=== PATIENT | female | born 1990 | race Caucasian/White ===

== ENCOUNTER → 2016-07-27 | Outpatient (CLI) | payer BC ==
[~2016-07-27] MED LIST: GLYB-108 PO
== END | disposition home or self-care (01) ==
LOC: C.LAB1850 12:20
PROVIDERS: ATTEND Obstetrics & Gynecology
DX: O20.9 Hemorrhage in early pregnancy, unspecified (principal); Z3A.00 Weeks of gestation of pregnancy not specified

== ENCOUNTER → 2016-08-07 | Outpatient (CLI) | payer BC | END | disposition home or self-care (01) | LOC: C.PAPS 08:27 | PROVIDERS: ATTEND Obstetrics & Gynecology | DX: Z01.419 Encounter for gynecological examination (general) (routine) without abnormal findings (principal) ==

== ENCOUNTER → 2016-08-14 | Outpatient (CLI) | payer BC | END | disposition home or self-care (01) | LOC: C.PATHSPEC 12:41 | PROVIDERS: ATTEND Obstetrics & Gynecology | DX: N84.1 Polyp of cervix uteri (principal) ==

== ENCOUNTER → 2017-04-02 | Outpatient (CLI) | payer BC ==
--- NOTE | 2017-04-02 16:16 | DIAGNOSTIC IMAGING REPORT ---
LEFT KNEE 1 OR 2 VIEWS ROUTINE, LEFT TIBIA/FIBULA 2 VIEWS ROUTINE CLINICAL HISTORY: LEG LEG PAIN. Left knee pain. COMPARISON STUDY: None. FINDINGS: No fracture or dislocation. No radiopaque foreign bodies. No knee effusion. Soft tissues are unremarkable. Cartilage spaces are maintained for age. IMPRESSION: No significant abnormality within the left knee or left lower leg. Electronically signed by: Hermes Hernandez M.D. 04/02/2017 4:15 PM Dictated Date/Time: 04/02/2017 4:13 PM
== END | disposition home or self-care (01) ==
LOC: C.RAD1850 16:00
PROVIDERS: ATTEND Physician Assistant Medical
DX: M89.8X9 Other specified disorders of bone, unspecified site (principal); M79.605 Pain in left leg

== ENCOUNTER → 2017-07-08 | Outpatient (CLI) | payer BC ==
[2017-07-08 13:09] LABS: BASO % 0.2 %; BASO ABS # 0.01 K/uL (0-0.2); COMPLETE YES; HEMATOCRIT 39.5 % (37-47); LYMPH ABS # 2.06 K/uL (1.2-3.4); MEAN CELL VOLUME 88.6 fL (80-100); MEAN CORPUSCULAR HEMOGLOBIN 31.2 pg (25-34); MEAN CORPUSCULAR HGB CONC 35.2 g/dl (32-36); MONO % 10.2 %; NEUT % 46.6 %; PLATELET COUNT 207 K/uL (130-400); RED BLOOD COUNT 4.46 M/uL (4.2-5.4); WHITE BLOOD COUNT 4.91 K/uL (4.8-10.8)
[2017-07-08 13:12] LABS: URINE APPEARANCE CLEAR (CLEAR); URINE BILIRUBIN NEG (NEG); URINE COLOR YELLOW; URINE EPITHELIAL CELL AUTO >30 /lpf (0-5); URINE NITRITE NEG (NEG); UROBILINOGEN NEG (NEG); ZZUR CULT IF INDIC CLEAN CATCH NO
[2017-07-08 13:18] LABS: AST/SGOT 11 U/L (15-37); BLOOD UREA NITROGEN 12 mg/dl (7-18); BUN/CREATININE RATIO 21.7 (10-20); CALCIUM 8.5 mg/dl (8.5-10.1); CARBON DIOXIDE 24 mmol/L (21-32); CHLORIDE 107 mmol/L (98-107); CREATININE 0.56 mg/dl (0.60-1.20); GLUCOSE 99 mg/dl (70-99); POTASSIUM 4.1 mmol/L (3.5-5.1); SODIUM 136 mmol/L (136-145)
[2017-07-08 13:22] LABS: MANUAL MICROSCOPIC REQUIRED? NO; REVIEW REQ? NO
[2017-07-08 13:29] LABS: ALB/GLOB RATIO 1.3 (0.9-2); ALKALINE PHOSPHATASE 31 U/L (45-117); ALT/SGPT 19 U/L (12-78)
== END | disposition home or self-care (01) ==
LOC: C.LABBFT 10:00
PROVIDERS: ATTEND Physician Assistant Medical
DX: R63.4 Abnormal weight loss (principal)

== ENCOUNTER → 2018-02-25 | Outpatient (CLI) | payer BC ==
--- NOTE | 2018-02-25 09:25 | DIAGNOSTIC IMAGING REPORT ---
R HAND MIN 3 VIEWS ROUTINE HISTORY: 28 years-old Female M13.0 Symmetrical polyarthritis COMPARISON: None available TECHNIQUE: 3 views of the right hand FINDINGS: 4 mm bone island of the proximal scaphoid. No acute fracture, dislocation or erosive arthropathy. No significant joint space narrowing or degenerative changes. No opaque foreign body. IMPRESSION: No acute bony abnormality. The above report was generated using voice recognition software. It may contain grammatical, syntax or spelling errors. Electronically signed by: Lisandro Wall M.D. 02/25/2018 9:24 AM Dictated Date/Time: 02/25/2018 9:22 AM
--- NOTE | 2018-02-25 09:28 | DIAGNOSTIC IMAGING REPORT ---
RIGHT KNEE 2 VIEWS HISTORY: M13.0 Symmetrical polyarthritis COMPARISON: None. FINDINGS: There is no fracture or dislocation. Soft tissues are unremarkable. Cartilage spaces are maintained. No erosive changes identified. Suspect a trace knee effusion. IMPRESSION: 1. Suspect a trace knee effusion. 2. No bony abnormality within the right knee. Electronically signed by: Hermes Hernandez M.D. 02/25/2018 9:27 AM Dictated Date/Time: 02/25/2018 9:24 AM
[2018-02-25 10:43] LABS: TRANSFERRIN 266 mg/dl (200-360)
[2018-03-03 03:34] LABS: ANA SCREEN TC 249X NEGATIVE (NEGATIVE); ANTI-SS-A <1.0 NEG AI (<1.0 NEG); ANTI-SS-B <1.0 NEG AI (<1.0 NEG); COMPLEMENT C4** TC 44982E 13 MG/DL (15-57); PARVOVIRUS IgM INDEX 0.4 (<0.9)
== END | disposition home or self-care (01) ==
LOC: C.RAD1850 08:59
PROVIDERS: ATTEND Internal Medicine Rheumatology
DX: M13.0 Polyarthritis, unspecified (principal); M79.641 Pain in right hand; M79.642 Pain in left hand

== ENCOUNTER → 2018-03-03 | Outpatient (CLI) | payer BC ==
--- NOTE | 2018-03-03 12:33 | DIAGNOSTIC IMAGING REPORT ---
BONE SCAN WHOLE BODY CLINICAL HISTORY: 28 years-old Female presenting with M13.0 Symmetrical polyarthritis. TECHNIQUE: Planar anterior and posterior imaging of the whole body was performed 3 hours following the intravenous administration of 26.7 mCi Tc-99m MDP. Static anterior and posterior delayed imaging of the lower extremities and hands were also obtained. COMPARISON: Radiographs of the right hand, right knee, left knee, and left lower leg. FINDINGS: Normal radiotracer distribution in the axial and appendicular skeleton. Faint visualization of the kidneys and normal excretion of radiotracer into the urinary bladder. No abnormal focus of radiotracer activity. Dedicated imaging of the lower extremities also demonstrates no abnormal foci of radiotracer activity. Symmetric avidity in both lower extremities and hands. IMPRESSION: 1. No abnormal radiotracer uptake. Electronically signed by: Farshad Willams M.D. 03/03/2018 12:31 PM Dictated Date/Time: 03/03/2018 12:28 PM
== END | disposition home or self-care (01) ==
LOC: C.NUCL 07:37
PROVIDERS: ATTEND Internal Medicine Rheumatology
DX: M13.0 Polyarthritis, unspecified (principal)

== ENCOUNTER 2020-01-08 08:26 | Observation (INO) ==
--- NOTE | 2019-12-21 14:37 | PAT Medication Instructions ---
Medication Instructions Date of Service December 21, 2019 Home Medications multivitamin 1 cap PO DAILY rizatriptan [Maxalt] 10 mg PO UD PRN DO NOT take the morning of surgery multivitamin 1 cap PO DAILY Take morning of surgery With a small sip of water, OTHERWISE NOTHING TO EAT OR DRINK AFTER MIDNIGHT: rizatriptan [Maxalt] 10 mg PO UD PRN (if needed) Take evening before surgery rizatriptan [Maxalt] 10 mg PO UD PRN (if needed) Other Notes If you have any questions please call us at [phone] or [phone] or [phone] or [phone]
--- NOTE | 2019-12-26 12:12 | Anesthesiology Consultation ---
Date of Service December 26, 2019 Assessment & Plan (1) Encounter for pre-operative examination: Per PAT assessment on 12/25: Travel screen- Lives in [facility] (near [facility]). No known COVID-19 positive contacts. No history of COVID-19 testing. No current COVID-19 related symptoms. - Check test AM DOS Chart Review Chart Review: Acceptable Risk for Surgery and Patient seen in Pre Admission Testing Teaching & Discussion Pre-Anesthesia Teaching/Discussion Notes: Instructed NPO after midnight before surgery,except medications with 15 cc of water. Medication instructions provided according to the PAT guidelines. History Surgery Operation Date: 01/08/20 09:20 Proposed Procedures p Robotic Total Laparoscopic Hysterectomy - Nahid Cuadra MD Height/Weight Height: 5 ft 2 in Weight: 49 kg Allergies Allergy/AdvReac Type Severity Reaction Status Date / Time No Known Allergies Allergy Unknown ` Verified 12/22/19 11:21 Medications Home Medications Medication Instructions Recorded Confirmed Last Taken multivitamin 1 cap PO DAILY 10/05/19 12/22/19 Unknown rizatriptan [Maxalt] 10 mg PO UD PRN 10/05/19 12/22/19 Unknown Past Medical History Medical History Fibroid uterus History of migraine headaches Pelvic pain Exercise / Class Metabolic Activity II 4-5 Yardwork/Stairs/Walk up hill Past Family History Family History Mother Abusive physical relationship with partner or spouse Thyroid disease Father Alcoholism Sister Arthritis Grandmother (Paternal) Diabetes Grandfather (Paternal) Hyperlipidemia Cancer Grandmother (Paternal) Hypertension Grandfather No problems noted. Grandfather (Maternal) Liver disease Aunt Multiple sclerosis Other Ovarian cancer Past Surgical History Surgical History H/O tooth extraction History of cervical polypectomy IN OFFICE SETTING History of endoscopy Implantable subdermal contraceptive surveillance capsules AND SINCE REMOVED [place] teeth removed Past Anesthesia History No Hx of Anesthesia Complications and No Family Hx of Anesthesia Complications History of PONV No Hx of PONV and Hx of Motion Sickness Social History Smoking Status: Current every day smoker Smoking cigarettes per day: < 1/2 ppd Do You Dip or Chew Tobacco: No Smoking End Date: FEB 2019 Hx Alcohol Use: Yes Alcohol type: beer, wine and hard liquor alcohol intake frequency: a few times a month Hx Substance Use: No substance use type: does not use Review of Systems Patient denies chest pain, shortness of breath, dyspnea on exertion, fever, chills, cough, wheezing, palpitations. Physical Exam Vital Signs VITALS BP 111/75 P 77 TEMP 98.5 SP02 99%RA RESP 16 PHYSICAL Full neck and c-spine range of motion. Full TMJ range of motion. TMD 3.5 finger breaths Mallampati Score 2 Dentition: intact, crown on molar Lungs: clear throughout to auscultation Cardiac: regular rate and rhythm, no murmurs noted Spine: normal Carotid arteries: negative bruit Extremities: no edema Testing Laboratory Results 12/26/19 12:25 Blood Type A Positive 12/26/19 12:25 Antibody Screen NEGATIVE 12/26/19 12:25
[2019-12-26 13:06] LABS: Basophils # (auto) 0.01 K/uL (0-0.2); Basophils % (auto) 0.3 %; Eosinophils # (auto) 0.11 K/uL (0-0.5); Eosinophils % (auto) 2.9 %; Hematocrit (blood only) 40.8 % (37-47); Hemoglobin 14.2 g/dL (12.0-16.0); Lymphocytes # (auto) 1.79 K/uL (1.2-3.4); Lymphocytes % (auto) 47.7 %; Mean Corpuscular Hemoglobin 30.7 pg (25-34); Mean Corpuscular Hgb Conc 34.8 g/dL (32-36); Mean Corpuscular Volume 88.1 fL (80-100); Mean Platelet Volume 11.2 fL (7.4-10.4); Monocytes # (auto) 0.37 K/uL (0.11-0.59); Monocytes % (auto) 9.9 %; Neutrophils # (auto) 1.47 K/uL (1.4-6.5); Neutrophils % (auto) 39.2 %; Platelet Count 234 K/uL (130-400); RDW Coefficient of Variation 12.6 % (11.5-14.5); RDW Standard Deviation 40.2 fL (36.4-46.3); Red Blood Count 4.63 M/uL (4.2-5.4); White Blood Count 3.75 K/uL (4.8-10.8)
[~2020-01-08 08:26] MED LIST changes: +CEFAZOLIN 2000MG 2,000 MG/15 ML SYR IV SCH; -GLYB-108 PO; +LACTATED RINGER'S 1,000 ML IV SCH; +LR 15ML/HR IV SCH; +PHENAZOPYRIDINE HCL 100 MG TAB PO SCH
[2020-01-08 09:19] LABS: Basophils # (auto) 0.01 K/uL (0-0.2); Basophils % (auto) 0.3 %; Eosinophils # (auto) 0.11 K/uL (0-0.5); Eosinophils % (auto) 3.1 %; Hematocrit (blood only) 42.9 % (37-47); Hemoglobin 14.5 g/dL (12.0-16.0); Lymphocytes # (auto) 1.36 K/uL (1.2-3.4); Mean Corpuscular Hemoglobin 29.8 pg (25-34); Mean Corpuscular Volume 88.3 fL (80-100); Mean Platelet Volume 11.1 fL (7.4-10.4); Monocytes # (auto) 0.53 K/uL (0.11-0.59); Monocytes % (auto) 14.8 %; Neutrophils # (auto) 1.57 K/uL (1.4-6.5); Neutrophils % (auto) 43.8 %; Platelet Count 187 K/uL (130-400); RDW Coefficient of Variation 12.8 % (11.5-14.5); RDW Standard Deviation 41.2 fL (36.4-46.3); Red Blood Count 4.86 M/uL (4.2-5.4); White Blood Count 3.58 K/uL (4.8-10.8)
[2020-01-08] MEDS ORDERED: PROPOFOL IV EMULSION 10 MG/ML 20 ML VIAL IV ONE (09:35)
[2020-01-08] MEDS ORDERED: LIDOCAINE HCL 2% 2 ML VIAL/AMP(20MG/ML) INFIL ONE (09:35)
[2020-01-08] MEDS ORDERED: ONDANSETRON INJ 2 MG/ML 2 ML VIAL ONE (09:35)
[2020-01-08] MEDS ORDERED: fentaNYL citrate 100 MCG/2 ML VIAL ONE (09:35)
[2020-01-08] MEDS ORDERED: MIDAZOLAM HCL 1 MG/ML 2ML VIAL ONE (09:35)
[2020-01-08] MEDS ORDERED: DEXAMETHASONE SOD INJ 4 MG/ML VIAL ONE (09:35)
[2020-01-08] MEDS ORDERED: ROCURONIUM BROMIDE 10 MG/ML 5 ML VIAL IV ONE (09:35)
--- NOTE | 2020-01-08 09:35 | History & Physical Bridge Note ---
Date of Service January 08, 2020 History & Physical Bridge Note I have examined the patient, reviewed the History & Physical and in the interval since the performance of the History & Physical I have noted the following changes of clinical significance: no changes noted
[2020-01-08 09:46] LABS: Mean Corpuscular Hgb Conc 33.8 g/dL (32-36)
[2020-01-08] MEDS ORDERED: SCOPOLAMINE 1.5 MG TDSY TD ONE ×2 (09:48→09:52)
[2020-01-08] MEDS ORDERED: ePHEDrine sulfate 50 MG/ML AMP IV PRN (09:52)
[2020-01-08] MEDS ORDERED: HYDROmorphone INJ 2 MG/ML SYR/VIAL IV PRN (09:52)
[2020-01-08] MEDS ORDERED: ATROPINE SULFATE 0.1 MG/ML 10ML SYR IV PRN (09:52)
[2020-01-08] MEDS ORDERED: fentaNYL citrate 100 MCG/2 ML VIAL IV PRN (09:52)
[2020-01-08] MEDS ORDERED: PROMETHAZINE HCL 12.5 MG in SODIUM CHLORIDE 0.9% 50 ML IV PRN (09:52)
[2020-01-08] MEDS ORDERED: ONDANSETRON INJ 2 MG/ML 2 ML VIAL IV PRN ×2 (09:52→11:51)
[2020-01-08] MEDS ORDERED: BUPIVACAINE 0.5 % 5 MG/1 ML MPF 30ML VIAL ONE (09:55)
[2020-01-08] MEDS ORDERED: HYDROmorphone INJ 2 MG/ML SYR/VIAL ONE (10:49)
[2020-01-08] MEDS ORDERED: TISSEEL FIBRIN SEALANT 4ML TOP ONE (11:28)
[2020-01-08] MEDS ORDERED: SIMETHICONE 80 MG CHEW PO PRN (11:51)
[2020-01-08] MEDS ORDERED: KETOROLAC 30 MG/ML VIAL IV PRN (11:51)
[2020-01-08] MEDS ORDERED: IBUPROFEN 600 MG TAB PO PRN (11:51)
[2020-01-08] MEDS ORDERED: ACETAMINOPHEN 325 MG TAB PO PRN (11:51)
[2020-01-08] MEDS ORDERED: OXYCODONE/ACETAMINOPHEN 5mg/325mg TAB PO PRN (11:51)
--- NOTE | 2020-01-08 11:51 | Post Operative Brief Note ---
PG Immediate Post Op with CF Date of Surgery January 08, 2020 Pre & Post Diagnosis Operation Date: 01/08/20 10:10 Pre-Op Diagnosis: Pelvic Pain, Fibroid Uterus Post-Op Diagnosis: Pelvic Pain, Fibroid Uterus I identified the patient and participated in the time-out.: Yes Procedure Operation Date: 01/08/20 10:10 Actual Procedures p Robotic Total Laparoscopic Hysterectomy with Cystoscopy(Not Applicable) - Nahid Cuadra MD Surgeon Nahid Cuadra MD Steel Molder Dr. Whitney Estimated Blood Loss 15 Findings Consistent with Post-Op Diagnosis Specimens Specimen Description: Permanent Specimen: A: Cervix, Uterus, Bilateral fallopian tubes
[2020-01-08] MEDS ORDERED: BUPIVACAINE 0.5 % 5 MG/1 ML MPF 30ML VIAL INFIL SCH (12:00)
[2020-01-08] MEDS ORDERED: GLYCOPYRROLATE 0.2 MG/ML VIAL ONE (12:18)
[2020-01-08] MEDS ORDERED: NEOSTIGMINE METHYLSULFATE 5 MG/5 ML SYR ONE (12:18)
--- NOTE | 2020-01-08 13:28 | Anesthesiology Progress Note ---
Date of Service January 08, 2020 Anesthesia Post Procedure Vital Signs Vital Signs: Temp Pulse Pulse Resp BP Pulse Ox 01/08/20 12:55 36.9 C 68 19 119/76 100 01/08/20 12:45 36.9 C 68 23 120/80 100 01/08/20 12:35 36.9 C 80 19 124/77 100 01/08/20 12:25 84 24 133/64 100 01/08/20 12:15 83 23 119/77 100 01/08/20 12:07 36.5 C 94 H 14 124/82 100 01/08/20 09:13 37 C 78 18 125/74 100 Transfer of Care Handoff Completed per policy Notes Mental Status: alert / awake / arousable and participated in evaluation Patient Amnestic to Procedure: Yes Nausea / Vomiting: adequately controlled Pain: adequately controlled Airway Patency, RR, SpO2: stable & adequate BP & HR: stable & adequate Hydration State: stable & adequate Anesthetic Complications: no major complications apparent and Pt Satisfied with anesthetic care
[2020-01-08] MEDS ORDERED: CHECK SCOPOLAMINE PATCH PLACEMENT SCH (16:00)
--- NOTE | 2020-01-08 17:51 | Operative Report (OR) ---
DATE OF OPERATION: 01/08/2020 PROCEDURES: Total laparoscopic hysterectomy, bilateral salpingectomy, cystoscopy. SURGEON: Nahid Cuadra MD. PAYROLL ACCOUNTING MANAGER: Saad Whitney MD. PREOPERATIVE DIAGNOSES: 1. Chronic pelvic pain refractory to medical management. 2. Fibroid uterus. 3. Abnormal bleeding. POSTOPERATIVE DIAGNOSES: 1. Chronic pelvic pain refractory to medical management. 2. Fibroid uterus. 3. Abnormal bleeding. 4. Status post procedure. ESTIMATED BLOOD LOSS: 15 mL. DRAINS: A Krishnamurthy catheter. FLUIDS: Continuous lactated Ringer. URINE OUTPUT: Per Krishnamurthy catheter. COMPLICATIONS: None. FINDINGS: There is noted to be an approximately 8-9 week size uterus with an approximately 3-4 cm posterior wall fibroid. Bilateral ovaries were normal-appearing, tubes were normal-appearing. There was noted to be bilateral ureteral efflux and intact bladder on cystoscopy. DESCRIPTION OF PROCEDURE: The patient was taken to the operating room after consents were ensured. Upon presentation, she was properly identified. General endotracheal anesthesia was obtained without difficulty. The patient was then prepped and draped in the normal sterile fashion. A preprocedural timeout was performed. Speculum was placed in the vagina. Cervix was visualized and a single tooth tenaculum placed on the superior aspect of the cervix. The [employer] uterine manipulator was placed per tumbling and rolling supervisor's recommendations. A Krishnamurthy catheter was then placed. The laparoscopic portion of the procedure was then initiated. A 12 mm incision was made in the superior aspect of the umbilicus. A Veress needle was inserted through the incision and the abdomen was insufflated to 15 mmHg. There is noted to be symmetric abdominal rise, tympany over the liver and an opening pressure of approximately 2 mmHg, all consistent with appropriate intra-abdominal insufflation. 8 mm incisions and trocars were placed under direct visualization in the right and left lower and left upper quadrants. The robot was then docked. The left round ligament was then identified, serially cauterized and dissected. The uteroovarian ligament was then identified, serially cauterized and dissected. The tube was dissected from the distal end up to the tubal cornua. The uteroovarian ligament dissection was then carried back to the level of the round ligament dissection. The bladder flap was then created anteriorly starting on the left side, continuing to the right side. The broad ligament was dissected to near the level of the uterine vessels. The right round ligament was identified, serially cauterized and dissected. The tube was then dissected down to the level of the uterine cornua. The uteroovarian ligament was now identified, serially cauterized and dissected back to the level of the round ligament dissection. The bladder flap was then continued anteriorly from the right connecting to the left. The broad ligament on the right side was then serially dissected to the level of the uterine vessels. The bladder was then dissected off the lower uterine segment and cervix showing a clear uterine manipulator cup. The uterine vessels were then skeletonized bilaterally and serially cauterized and dissected. The hysterotomy was then started anteriorly, continued clockwise around the VCare cup freeing the cervix from the vagina. The uterus, cervix and tubes were then delivered through the colpotomy without difficulty. The cuff was then closed with a V-Loc suture in continuous running stitch. A cystoscopy was then performed, which showed intact bladder and bilateral ureteral efflux. The Tisseel was then placed over all raw edges of the vaginal cuff and ovaries and raw edges of the bladder peritoneum. The decision was made to end the robotic portion of the case and the robot was undocked. Abdomen was desufflated and the 12 mm umbilical incision fascia was reapproximated with 0 Vicryl in interrupted stitch. All skin incisions were reapproximated with 4-0 Vicryl in interrupted stitch. Dermabond was placed on top of all incisions. 12 mL of Marcaine were distributed throughout all incisions. The patient was awoken from anesthesia and taken to recovery room in stable condition. I attest to the content of the Intraoperative Record and any orders documented therein. Any exception s are noted below.
[2020-01-08] MEDS ORDERED: DOCUSATE SODIUM 100 MG CAP PO SCH (21:00)
--- NOTE | 2020-01-13 14:33 | Discharge Summary (DS) ---
HOSPITAL COURSE: The patient was admitted for a scheduled total laparoscopic hysterectomy, bilateral salpingectomy and cystoscopy. Procedure was performed without complication. The patient remained in house for recovery for approximately 4-6 hours after the procedure, at which time she was meeting criteria for discharge and desired to go home. The recovery course was uncomplicated. The patient was provided both written and verbal discharge instructions including postoperative care and was discharged home in stable condition with planned 2-week followup.
== END 2020-01-08 17:27 | disposition home or self-care (01) ==
LOC: ASU 08:26 → 4S2 08:26